=== PATIENT | male | born 1995 ===

== ENCOUNTER 2021-05-15 08:30 | Outpatient (CLI) | payer OTHER ==
[2021-05-15 09:31] VITALS: BP 145/92
--- NOTE | 2021-05-15 09:31 | SLEEP CARE CONSULTATION ---
Information from patient questionnaire entered by Renee Taylor MA. I have reviewed and concur with the information entered by Renee Taylor MA. This document represents the service I personally performed and the decisions made by , Mackenzie Byrd ARNP. History of Present Illness Service Date and Time: 05/15/2021 0830 Reason for Visit: New patient (ONSET 04/2018, NO PRIORS, ) Chief Complaint: reports: Unrefreshed sleep, Snoring, Excessive daytime sleepin ess, Observed pauses in breathing, Fatigue Date of Onset: 3-4 YEARS Usual bedtime: 1100 Time it takes to fall asleep: 1-2 HOURS Snores at night: Yes Observed to quit breathing while asleep: Yes Sleeps alone due to snoring: Yes Number of times waking at night: 2-3 Reasons for waking at night: reports: Snoring, Gasping for air, Bathroom Toss, Turn, or Twitch while sleeping: Yes Recalls having dreams: Yes Usually gets out of bed at: [id number] Feels refreshed in the morning: No Morning headache: Yes (3-4 times a week, last 1 hour) Sleepy or fatigued during the day: Yes Ever fallen asleep while driving: Yes (drowsy driving, no accidents or swerving out of gregg) Takes day naps: No Dreams during day naps: No Prior sleep studies: No Additional HPI information: I had the pleasure of seeing JOSEE GILLETTE today regarding the possibility of him having a sleep disorder. His current complaints are excessive daytime sleepiness, fatigue, observed pauses in breathing, snoring and unrefreshed sleep. His has told him he snores loudly and that he has been having pauses in his breathing when asleep. He states his daytime sleepiness has been getting worse. He will sometimes fall asleep at the computer at work. - Parasomnia Symptoms Ever been unable to move upon waking from sleep: No Walks in sleep: No Talks in sleep: Yes Ever acted out dreams in sleep: No Ever felt weak in the knees when startled or emotional: No Bothered by creepy, crawly, restless sensations in legs: Yes (occurs when home at end of day, 2-3 days a week) Problems with memory or concentration: Yes (sometimes memory, hard to concentrate at work) Subjective Initial [place] Sleepiness Scale score: 21 (05/08) Past Medical History Past Medical History: reports: Hypertension Social History The patient's occupation is a [employer]. Patient is and lives in [place]. Have you smoked in the past 12 months: No Alcohol use: Yes Alcohol amount and frequency: 2-3 X WEEKLY Caffeine use: Yes Caffeine amount and frequency: 2 X DAILY Family History Family history of sleep disordered breathing: Yes Family Hx Sleep Apnea: Mother: Snoring, Father: Snoring Allergies and Home Medications Known drug allergies: No Drug allergies reviewed: Yes Home medication list reviewed: Yes Allergy and home medication list: Hydrochlorothiazide - Lisinopril 25 mg-20 mg Review of Systems Cardiovascular: reports: high blood pressure Gastrointestinal: denies: heartburn Psychiatric: denies: anxiety, depression Ear/Nose/Throat: reports: wisdom teeth removed. denies: tonsillectomy Endocrine: denies: thyroid disease Physical Exam Vital signs obtained and entered by: Colten TAYLOR CMA LUZ Blood Pressure: 145/92 (PULSE 67, RESP 18, LEFT ) Cuff size: wrist Heart Rate: 65 O2 Saturation: 96 (PAPER) Height: 5 ft 9 in Weight: 190 lb Body Mass Index: 28.0 BMI Classification: Overweight Neck circumference: 15 (INCH) Mouth and throat: narrow oropharynx Soft palate: long Hard palate: normal Uvula: normal Uvula visualization: 25% Mallampati Class III Tongue: enlarged in size with teeth carter on lateral edges Tonsils: 1+ Neck: normal w/o lymphadenopathy or thyromegaly Heart: regular rate and rhythm Lungs: clear bilaterally Impression and Plan 1. Suspected Obstructive Sleep Apnea-Hypopnea Syndrome, as suggested by a history of loud and irregular snoring, observed cessation of breath while asleep, gasping or choking in sleep, morning headache, unrefreshed sleep, cognitive impairment, and excessive daytime sleepiness. Narrow oropharynx and obesity are common predisposing factors for obstructive sleep apnea-hypopnea syndrome. I recommend proceeding to polysomnography to confirm the diagnosis and to assess severity. If the patient has significant sleep disordered breathing, a manual CPAP titration study will also be performed to find the optimal treatment pressure. I informed the patient of what the sleep studies involve and after some discussion, obtained agreement to proceed. The pathophysiology of obstructive sleep apnea-hypopnea syndrome was discussed with the patient and health risks of cardiovascular and cerebrovascular disease if not treated. Risks of drowsy driving discussed in detail and patient advised to avoid long distance driving and to ticket puller at the first sign of drowsiness. Patient agreed to plan. * Schedule polysomnography +- manual CPAP titration study and return in 1-2 weeks after the study to discuss result and initiate therapy. * Avoid long distance driving or driving when feeling sleepy. * Avoid alcohol, sedative and muscle relaxant around bedtime. * Attempt to lose weight. * Review instructions provided by trained office staff on how to prepare for the sleep study. * Return for follow-up after sleep study completed. Counseling Topics: Weight loss health impact Visit Type: In Office Time Spent with Patient (minutes): 32 Provider Statement: I spent 100% of the Face to Face Visit with the patient with greater than 50% spent counseling the patient and coordination of care.
== END 2021-05-15 08:31 | disposition home or self-care (01) ==
LOC: SC 08:30
PROVIDERS: ATTEND Nurse Practitioner Family
DX: R06.83 Snoring (principal); G47.8 Other sleep disorders; R06.81 Apnea, not elsewhere classified; R51.9 Headache, unspecified; G47.10 Hypersomnia, unspecified; I10 Essential (primary) hypertension
CPT/HCPCS: 99203; 99212

== ENCOUNTER 2021-05-25 14:27 | Outpatient (CLI) | payer OTHER | END 2021-05-25 14:28 | disposition home or self-care (01) | LOC: SC 14:27 | PROVIDERS: ATTEND Nurse Practitioner Family | DX: G47.33 Obstructive sleep apnea (adult) (pediatric) (principal); R09.02 Hypoxemia | CPT/HCPCS: 95806 ==

== ENCOUNTER 2021-06-21 08:22 | Outpatient (CLI) | payer OTHER ==
[2021-06-21 08:59] VITALS: BP 128/71
--- NOTE | 2021-06-21 08:59 | SLEEP CARE CONSULTATION ---
Information from patient questionnaire entered by Renee Dunn MA. I have reviewed and concur with the information entered by Renee Dunn MA. This document represents the service I personally performed and the decisions made by , Mackenzie Byrd ARNP. History of Present Illness Service Date and Time: 06/21/2021 08 Initial [place] Sleepiness Scale score: 21 (05/08) Current [place] Sleepiness Scale score: 20 (07/08) Additional HPI information: JOSEE GILLETTE returns for follow up and results of the recently performed home sleep study. I explained the pathophysiology behind obstructive sleep apnea. We then spent quite a bit of time discussing different treatment options. For mild obstructive sleep apnea, surgery and oral appliance are alternatives to nasal CPAP therapy but in moderate or severe cases, nasal CPAP is the most effective and reliable treatment. I reviewed the impact of weight changes on sleep apnea and strongly recommended losing weight. After some discussion, the patient opted to go with the nasal CPAP therapy. Nasal autoCPAP set at 4-15 cmH20 will be ordered with rationale explained. A manual titration study will be ordered if unable to find optimal pressure with office adjustments. I explained how CPAP machine works and what to expect when using the machine. Using CPAP every night in order to get used to it was emphasized. Patient advised to put CPAP mask on before getting into bed so as not to fall asleep without CPAP. To assist acclimation to CPAP use, it could also be used for a short time during day while reading or watching TV. The patient was instructed to call the CPAP supplier to discuss any mechanical problem that may occur. If the mask given is uncomfortable or is difficult to keep on through the night even with adjustment, contact the CPAP supplier as many will replace with another mask style if notified before 30 days. If snoring or perceives is not getting enough air or too much air from the machine, notify this office. [facility] patient education PAP tips reviewed and given to patient. Patient counseled not drink alcohol less than 4 hours before bedtime as it can increase snoring and apnea. Patient was cautioned about risks of drowsy driving until sleepiness symptoms resolve. Sleep Study - Results Type of Sleep Study: Home sleep study (F/U HOME STUDY, 05/25/21 [facility] Prior sleep studies: No Polysomnography/Home Sleep Study results: Physician Impression: The quality of the study is good. The length of the study is adequate (> 240 minutes). Please also see the tabulated and graphic data. 1. Obstructive Sleep Apnea-Hypopnea (ICD-10 G47.33), moderate, with an AHI of 23.0/hr and raul SaO2 of 85%. During the study, the patient had 25 apneas (24 obstructive, 0 central, 1 mixed) and 157 hypopneas. The longest episode lasted 111.0 seconds. The respiratory events occurred more frequently during supine sleep (supine AHI was 28.6 and non-supine, 7.42). 2. Hypoxemia (ICD-10 R09.02), mild, with the lowest oxygen saturation of 85 % and 18.9 minutes with SaO2 under 90%. Baseline oxygen saturation was normal (Average oxygen saturation was 93%). Allergies and Home Medications Known drug allergies: No Drug allergies reviewed: Yes Home medication list reviewed: Yes (no changes) Review of Systems Review of systems same as previous: Yes (no changes) Physical Exam Vital signs obtained and entered by: Colten DUNN CMA AACA, Blood Pressure: 128/71 (RIGHT, RESP 16, PULSE 61,) Cuff size: wrist Heart Rate: 62 O2 Saturation: 99 (PAPER MASK) Height: 5 ft 9 in Weight: 182 lb Body Mass Index: 26.9 BMI Classification: Overweight Impression and Plan 1. Obstructive Sleep Apnea-Hypopnea Syndrome, moderate, with lowest oxygen saturation of 85%. Obviously this is the cause of the patients symptoms of unrefreshed sleep, and excessive daytime sleepiness. Positive pressure therapy could benefit hypertension. As mentioned above, the patient will be started on nasal autoCPAP therapy with pressure set at 4-15 cmH2O. A manual titration study will be completed if unable to find optimal treatment pressure with office adjustments. Compliance guidelines also reviewed. A copy of compliance guidelines will be given for reference at check out. Because the apnea is more severe supine, I instructed to avoid sleeping supine using pillow positioning until able to start CPAP use. 2. Hypoxemia, mild, with the lowest oxygen saturation of 85 % and 18.9 minutes with SaO2 under 90%. His baseline oxygen saturation was normal with an average oxygen saturation of 93%. * Nasal auto CPAP therapy, pressure at 4-15 cm H2O. * Attempt to lose weight. * Avoid alcohol consumption near bedtime. * Avoid supine sleep until using CPAP. * The patient is again cautioned about driving until sleepiness completely resolves. * Return one month after CPAP obtained. I will assess response to therapy and compliance at that time. Counseling Topics: Sleeping position, Weight loss health impact Visit Type: In Office Time Spent with Patient (minutes): 20 Provider Statement: I spent 100% of the Face to Face Visit with the patient with greater than 50% spent counseling the patient and coordination of care.
== END 2021-06-21 08:23 | disposition home or self-care (01) ==
LOC: SC 08:22
PROVIDERS: ATTEND Nurse Practitioner Family
DX: G47.33 Obstructive sleep apnea (adult) (pediatric) (principal); R09.02 Hypoxemia
CPT/HCPCS: 99212; 99213

== ENCOUNTER 2021-08-02 17:59 | Emergency (ER) | payer OTHER ==
[2021-08-02 18:13] VITALS: BP 138/81
--- NOTE | 2021-08-02 18:44 | XRAY Report ---
PROCEDURE: Ankle 3 View RT INDICATIONS: Injury to extremity TECHNIQUE: 3 views of the ankle were acquired. COMPARISON: None. FINDINGS: Bones: No acute fractures or dislocations. Ankle mortise is normally aligned. No suspicious bony l esions. Soft tissues: No suspicious soft tissue calcifications. IMPRESSION: No acute osseous abnormality. If there is clinical concern or persistent symptoms, additi onal imaging such as repeat radiographs or advanced imaging (e.g. CT, MRI) may be helpful for further evaluation. Reviewed by: Chente Hoover MD on 08/02/2021 6:43 PM PDT Approved by: Chente Hoover MD on 08/02/2021 6:43 PM PDT Station ID: [id number]
--- NOTE | 2021-08-02 18:48 | ED Physician Documentation ---
History of Present Illness - Stated complaint Stated Complaint: R FOOT INJ - Chief complaint Chief Complaint: Trauma Ext - Additonal information Additional information: 25-year-old male presents emergency department for evaluation of acute posterior ankle pain. He was playing basketball went up for a lay up and landed awkwardly on his ankle. Since then he has had posterior heel and Achilles pain. No history of previous injury. Review of Systems Constitutional: denies: Fever, Chills Cardiac: reports: Reviewed and negative Respiratory: reports: Reviewed and negative GI: reports: Reviewed and negative : reports: Reviewed and negative Skin: reports: Reviewed and negative Musculoskeletal: reports: Joint pain Neurologic: reports: Reviewed and negative PD PAST MEDICAL HISTORY - Allergies Allergies/Adverse Reactions: Allergies Allergy/AdvReac Type Severity Reaction Status Date / Time No Known Drug Allergies Allergy Verified 08/02/21 18:13 PD ED PE EXPANDED - Extremities Extremities: Right foot (Palpable defect noted at the distal Achilles tendon. Positive Steinberg's.) Results - Vitals Vitals: Vital Signs - 24 hr 08/02/21 18:07 Temperature 37.3 C Heart Rate 78 Respiratory 14 Rate Blood Pressure 138/81 H O2 Saturation 100 Oxygen O2 Source Room air - Rads (name of study) right ankle Radiology: Final report received (No suspicious soft tissue calcification. No acute osseous abnormality) PD MEDICAL DECISION MAKING - ED course Complexity details: reviewed results, considered differential, d/w patient ED course: 25-year-old male presents to the emergency department for evaluation of right acute posterior ankle pain. Injured himself while playing basketball. He has an exam consistent with Achilles tendon rupture. Positive Steinberg's. Patient is placed in equinus splint. Given crutches. He will follow closely with [facility] to request referral to orthopedics. Emergent return precautions otherwise discussed Departure - Departure Disposition: 01 Home, Self Care Clinical Impression: Achilles tendon rupture Qualifiers: Encounter type: sequela Laterality: right Qualified Code(s): S86.011S - Strain of right Achilles tendon, sequela Condition: Stable Record reviewed to determine appropriate education?: Yes Instructions: ED Tendon Rupture Achilles Comments: Unfortunately your exam is consistent with having a ruptured your Achilles tendon. Often this is something that will require surgical repair. It is important that you see [facility] tomorrow or on Friday in order to obtain the referral to orthopedics. You have been placed in a temporary splint called an equinus splint to help prevent tension on the tendon. You can take Tylenol or ibuprofen for discomfort. Your splint cannot get wet if it gets wet return to the ER for repeat evaluation. 9 if you have numbness or tingling in your foot or toes, develop any fevers have severe pain in your foot while wearing the splint then please return to the ER for second evaluation.
== END 2021-08-02 19:24 | disposition home or self-care (01) ==
LOC: ED 17:59
DX: S86.011A Strain of right Achilles tendon, initial encounter (principal); X58.XXXA Exposure to other specified factors, initial encounter; Y93.67 Activity, basketball
CPT/HCPCS: 99281; 99283

== ENCOUNTER 2022-03-26 21:11 | Outpatient (CLI) | payer OTHER | END 2022-03-26 21:12 | disposition critical access hospital (66) | LOC: EMS 21:11 | DX: S61.213A Laceration without foreign body of left middle finger without damage to nail, initial encounter (principal); S61.215A Laceration without foreign body of left ring finger without damage to nail, initial encounter; S61.217A Laceration without foreign body of left little finger without damage to nail, initial encounter; S41.112A Laceration without foreign body of left upper arm, initial encounter; X99.1XXA Assault by knife, initial encounter; Y92.009 Unspecified place in unspecified non-institutional (private) residence as the place of occurrence of the external cause | CPT/HCPCS: A0425; A0429 ==

== ENCOUNTER 2022-03-26 21:27 | Emergency (ER) | payer OTHER ==
[2022-03-26] MEDS ORDERED: LIDOCAINE 2% 10 ML MDV SUBQ ONE (21:32)
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
[2022-03-26] MEDS ORDERED: lidocaine 1% 20 ML MDV ONE (21:44)
[2022-03-26] MEDS ORDERED: oxyCODONE 5 MG TABLET PO STA (21:59)
[2022-03-26] MEDS ORDERED: cephALEXin 250 MG CAPSULE PO STA (22:34)
[2022-03-26 23:19] VITALS: BP 151/82
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
== END 2022-03-26 23:20 | disposition home or self-care (01) ==
LOC: EDUNIT# → ED 21:27
DX: S41.112A Laceration without foreign body of left upper arm, initial encounter (principal); S61.213A Laceration without foreign body of left middle finger without damage to nail, initial encounter; S61.215A Laceration without foreign body of left ring finger without damage to nail, initial encounter; S61.217A Laceration without foreign body of left little finger without damage to nail, initial encounter; X99.1XXA Assault by knife, initial encounter
CPT/HCPCS: 12005; 73130; 99283; A9270